=== PATIENT | female | born 1970 | race African-American/Black ===

== ENCOUNTER → 2020-08-28 | Day surgery (SDC) | payer MEDICARE, MEDICAID ==
[~2020-08-28] VITALS: Ht 157.5 cm; Wt 58.1 kg
[~2020-08-28] MED LIST: CLON0.5T4 PO; ERGO500013 PO; IBUP-2029 PO; LACTATED RINGERS 1,000 ML IV SCH; OMEP40CA12 PO; TRAM50TA3 PO; ZOLP5TAB2 PO
[2020-08-28 10:17] LABS: *AMPHETAMINES SCREEN URINE NEGATIVE (NEGATIVE); *BARBITURATES SCREEN URINE NEGATIVE (NEGATIVE); *BENZODIAZEPINES SCREEN URINE NEGATIVE (NEGATIVE); *COCAINE SCREEN URINE PRESUMTIVE POSITIVE (NEGATIVE); METHADONE URINE SCREEN NEGATIVE (NEGATIVE); OPIATES URINE SCREEN NEGATIVE (NEGATIVE)
[2020-08-28 10:18] LABS: CANNABINOID URINE SCREEN NEGATIVE (NEGATIVE); PHENCYCLIDINE URINE SCREEN NEGATIVE (NEGATIVE)
== END | disposition home or self-care (01) ==
LOC: OR 10:32
PROVIDERS: ATTEND Specialist
DX: K80.80 Other cholelithiasis without obstruction (principal); Z53.8 Procedure and treatment not carried out for other reasons; Z79.899 Other long term (current) drug therapy; Z98.890 Other specified postprocedural states; Z88.0 Allergy status to penicillin
CPT/HCPCS: 80305; 93005

== ENCOUNTER → 2020-08-28 | Outpatient (CLI) | payer MEDICARE, MEDICAID ==
[~2020-08-28] MED LIST changes: -LACTATED RINGERS 1,000 ML IV SCH
== END | disposition home or self-care (01) ==
LOC: LAB 09:36
PROVIDERS: ATTEND Specialist
DX: Z20.828 Contact with and (suspected) exposure to other viral communicable diseases (principal)
CPT/HCPCS: 87426